=== PATIENT | male | born 1950 | race Caucasian/White ===

== ENCOUNTER 2017-09-26 11:53 | Inpatient (IN) | payer MEDICARE ==
[2017-09-26] MEDS ORDERED: SODIUM CHLORIDE 0.9% 1,000 ML IV STA ×2 (12:10)
[2017-09-26 12:27] LABS: Basophils % (A) 1 %; Eosinophils # (A) 0.2 k/uL (0-0.7); Eosinophils % (A) 4 %; HGB 9.8 gm/dL (13.0-17.5); Hypochromasia Marked; Lymphocytes # (A) 1.3 k/uL (1.0-4.8); Lymphocytes % (A) 21 %; MCH 23.3 pg (25.0-35.0); MCHC 29.7 g/dL (31.0-37.0); MCV 78.5 fL (80.0-100.0); Mean Platelet Volume 8.4; Monocytes # (A) 0.4 k/uL (0-1.0); Monocytes % (A) 6 %; Neutrophils # (A) 3.9 k/uL (1.3-7.7); Neutrophils % (A) 66 %; Platelet Count 180 k/uL (150-450); RBC 4.21 m/uL (4.30-5.90); RDW 15.7 % (11.5-15.5); WBC 5.8 k/uL (3.8-10.6)
[2017-09-26 12:37] LABS: Glucose 124 mg/dL (74-99); Potassium 3.8 mmol/L (3.5-5.1); Sodium 148 mmol/L (137-145)
[2017-09-26 12:38] LABS: ALT 52 U/L (21-72); AST 63 U/L (17-59); Albumin 3.6 g/dL (3.5-5.0); Alkaline Phosphatase 154 U/L (38-126); Anion Gap 16 mmol/L; Blood Urea Nitrogen 11 mg/dL (9-20); Calcium 8.4 mg/dL (8.4-10.2); Carbon Dioxide 19 mmol/L (22-30); Chloride 113 mmol/L (98-107); Magnesium 2.1 mg/dL (1.6-2.3); Phosphorus 2.2 mg/dL (2.5-4.5); Total Bilirubin 0.3 mg/dL (0.2-1.3); Total Protein 6.8 g/dL (6.3-8.2)
[2017-09-26 12:46] LABS: Partial Thromboplastin Time 21.9 sec (22.0-30.0); Prothrombin Time 10.2 sec (9.0-12.0)
[2017-09-26 12:50] LABS: Creatine Kinase 72 U/L (55-170)
[2017-09-26 13:02] LABS: Creatine Kinase MB 0.5 ng/mL (0.0-2.4); Troponin I <0.012 ng/mL (0.000-0.034)
--- NOTE | 2017-09-26 13:02 | CT ---
EXAMINATION TYPE: CT brain wo con DATE OF EXAM: 09/26/2017 COMPARISON: Prior CT brain 06/21/2014, MR brain 07/07/2014 HISTORY: Weakness, prior CVA CT DLP: 1183 mGycm Automated exposure control for dose reduction was used. Helical acquisition through the brain. FINDINGS: The area probable residual parenchyma in the posterior parietal region on the right shows an interval increase in attenuation to suspect is due to calcification. No focal mass effect. Large area of prio r cerebral vascular accident is stable involving the right cerebrum, there is associated ex vacuo phe nomenon of the right lateral ventricle. Right cerebral peduncle is diminished in size as compared to the left. Cortical atrophy is again noted. No suspected hydrocephalus. Cerebral vascular calcificatio ns are noted. Inflammatory change is mild within the maxillary sinuses. IMPRESSION: NO DEFINITE ACUTE ABNORMALITY DESCRIBED. FINDINGS IN THE RIGHT PARIETAL LOBE AND AREA OF PRIOR CER EBRAL INFARCT THOUGHT LIKELY TO BE CHRONIC. MRI MAY BE OF BENEFIT.
[2017-09-26 13:43] LABS: Appearance,Urine Clear (Clear); Bilirubin,Urine Negative (Negative); Blood,Urine Negative (Negative); Color,Urine Yellow; Glucose,Urine (UA) Negative (Negative); Hyaline Casts,Urine 9 /lpf (0-2); Ketones,Urine Trace (Negative); Leukocyte Esterase,Urine Negative (Negative); Mucus,Urine Occasional /hpf; Nitrite,Urine Negative (Negative); PH, Urine 5.5 (5.0-8.0); Protein,Urine 1+ (Negative); Specific Gravity,Urine 1.017 (1.001-1.035); Squamous Epithelial Cell,Urine <1 /hpf (0-4); WBC,Urine 4 /hpf (0-5)
[2017-09-26] MEDS ORDERED: ASPIRIN 325 MG TAB PO STA (13:53)
--- NOTE | 2017-09-26 13:58 | ED ---
General Adult HPI - General Chief complaint: Weakness Stated complaint: WEAKNESS Time Seen by Provider: 09/26/17 12:10 Source: patient, EMS, RN notes reviewed, old records reviewed Mode of arrival: EMS Limitations: no limitations - History of Present Illness Initial comments: This is a 67-year-old male the ER for evaluation. Patient is today for evaluation of sudden onset left lower extremity weakness. Patient does have prior history of CVA which did affect his left side. Patient states he woke today with inability to ambulate and no strength to LLE - Related Data Home Medications Medication Instructions Recorded Confirmed Aspirin 81 mg PO DAILY 11/07/13 09/26/17 Citalopram Hydrobromide [CeleXA] 20 mg PO DAILY 11/07/13 09/26/17 Hydrocodone/Acetaminophen 1 tab PO Q12H PRN 11/07/13 09/26/17 [Hydrocodone/Acetaminophen 7.5-325] Cyanocobalamin [Vitamin B-12] 1,000 mcg PO DAILY 11/06/14 09/26/17 amLODIPine [Norvasc] 10 mg PO DAILY 11/06/14 09/26/17 diphenhydrAMINE [Benadryl] 25 mg PO Q6H PRN 11/06/14 09/26/17 Acetaminophen Tab [Tylenol Tab] 650 mg PO Q6H PRN 09/26/17 09/26/17 Finasteride [Proscar] 5 mg PO DAILY 09/26/17 09/26/17 Fluticasone Nasal [place] [Flonase 2 spr EA NOSTRIL DAILY 09/26/17 09/26/17 Nasal [place]] Hydrochlorothiazide 12.5 mg PO DAILY 09/26/17 09/26/17 Losartan Potassium [Cozaar] 25 mg PO DAILY 09/26/17 09/26/17 Naproxen 500 mg PO BID 09/26/17 09/26/17 Triamcinolone 0.1% Cream [Kenalog] 1 applicatio TOPICAL BID PRN 09/26/17 Vitamin B Complex 1 cap PO DAILY 09/26/17 09/26/17 Allergies Allergy/AdvReac Type Severity Reaction Status Date / Time No Known Allergies Allergy Verified 09/26/17 12:29 Review of Systems ROS Statement: Those systems with pertinent positive or pertinent negative responses have been documented in the HPI. ROS Other: All systems not noted in ROS Statement are negative. Past Medical History Past Medical History: Atrial Fibrillation, CVA/TIA, Hyperlipidemia, Osteoarthritis (OA), Rheumatoid Arthritis (RA), Seizure Disorder Additional Past Medical History / Comment(s): see Dr Dowd H&P, CVA 2011-left sided weakness-uses a cane, hx migraines, last seizure 4 yrs ago History of Any Multi-Drug Resistant Organisms: None Reported Past Surgical History: Cholecystectomy, Tonsillectomy Past Anesthesia/Blood Transfusion Reactions: No Reported Reaction Past Psychological History: Depression Smoking Status: Former smoker Past Alcohol Use History: None Reported Past Drug Use History: None Reported - Past Family History Mother Family Medical History: No Reported History General Exam - General Exam Comments Initial Comments: Inability to move left lower extremity Limitations: no limitations General appearance: alert, in no apparent distress Head exam: Present: atraumatic, normocephalic, normal inspection Eye exam: Present: normal appearance, PERRL, EOMI. Absent: scleral icterus, conjunctival injection, periorbital swelling ENT exam: Present: normal exam, mucous membranes moist Neck exam: Present: normal inspection. Absent: tenderness, meningismus, lymphadenopathy Respiratory exam: Present: normal lung sounds bilaterally. Absent: respiratory distress, wheezes, rales, rhonchi, stridor Cardiovascular Exam: Present: regular rate, normal rhythm, normal heart sounds. Absent: systolic murmur, diastolic murmur, rubs, gallop, clicks GI/Abdominal exam: Present: soft, normal bowel sounds. Absent: distended, tenderness, guarding, rebound, rigid Extremities exam: Present: normal inspection, full ROM, normal capillary refill. Absent: tenderness, pedal edema, joint swelling, calf tenderness Back exam: Present: normal inspection Neurological exam: Present: alert, oriented X3, CN II-XII intact Psychiatric exam: Present: normal affect, normal mood Skin exam: Present: warm, dry, intact, normal color. Absent: rash Course Vital Signs 09/26/17 09/26/17 11:56 13:25 Temperature 98.9 F Pulse Rate 107 H 86 Respiratory 18 18 Rate Blood Pressure 147/60 125/58 O2 Sat by Pulse 98 93 L Oximetry - Reevaluation(s) Reevaluation #1: 09/26/17 13:57 Patient was significantly decreased movement of left lower extremity and weakness, inability to move left leg Medical Decision Making - Medical Decision Making 67 male the ER for evaluation. Patient states he woke up he was significant left lower extremity weakness and inability to ambulate secondary left leg weakness. Has history of old CVA which had left had affect his left leg but now is significantly worse off - Lab Data Result diagrams: 09/26/17 12:07 09/26/17 12:07 Lab Results 09/26/17 09/26/17 09/26/17 Range/Units 12:07 12:07 12:07 WBC 5.8 (3.8-10.6) k/uL RBC 4.21 L (4.30-5.90) m/uL Hgb 9.8 L (13.0-17.5) gm/dL Hct 33.0 L (39.0-53.0) % MCV 78.5 L (80.0-100.0) fL MCH 23.3 L (25.0-35.0) pg MCHC 29.7 L (31.0-37.0) g/dL RDW 15.7 H (11.5-15.5) % Plt Count 180 (150-450) k/uL Neutrophils % 66 % Lymphocytes % 21 % Monocytes % 6 % Eosinophils % 4 % Basophils % 1 % Neutrophils # 3.9 (1.3-7.7) k/uL Lymphocytes # 1.3 (1.0-4.8) k/uL Monocytes # 0.4 (0-1.0) k/uL Eosinophils # 0.2 (0-0.7) k/uL Basophils # 0.0 (0-0.2) k/uL Hypochromasia Marked PT (9.0-12.0) sec INR (<1.2) APTT (22.0-30.0) sec Sodium 148 H (137-145) mmol/L Potassium 3.8 (3.5-5.1) mmol/L Chloride 113 H (98-107) mmol/L Carbon Dioxide 19 L (22-30) mmol/L Anion Gap 16 mmol/L BUN 11 (9-20) mg/dL Creatinine 0.60 L (0.66-1.25) mg/dL Est GFR (CKD-EPI)AfAm >90 (>60 ml/min/1.73 sqM) Est GFR (CKD-EPI)NonAf >90 (>60 ml/min/1.73 sqM) Glucose 124 H (74-99) mg/dL Plasma Lactic Acid [place] (0.7-2.0) mmol/L Calcium 8.4 (8.4-10.2) mg/dL Phosphorus 2.2 L (2.5-4.5) mg/dL Magnesium 2.1 (1.6-2.3) mg/dL Total Bilirubin 0.3 (0.2-1.3) mg/dL AST 63 H (17-59) U/L ALT 52 (21-72) U/L Alkaline Phosphatase 154 H (38-126) U/L Total Creatine Kinase 72 (55-170) U/L CK-MB (CK-2) 0.5 (0.0-2.4) ng/mL CK-MB (CK-2) Rel Index 0.7 Troponin I <0.012 (0.000-0.034) ng/mL Total Protein 6.8 (6.3-8.2) g/dL Albumin 3.6 (3.5-5.0) g/dL Urine Color Urine Appearance (Clear) Urine pH (5.0-8.0) Ur Specific [place] (1.001-1.035) Urine Protein (Negative) Urine Glucose (UA) (Negative) Urine Ketones (Negative) Urine Blood (Negative) Urine Nitrite (Negative) Urine Bilirubin (Negative) Urine Urobilinogen (<2.0) mg/dL Ur Leukocyte Esterase (Negative) Urine WBC (0-5) /hpf Ur Squamous Epith Cells (0-4) /hpf Hyaline Casts (0-2) /lpf Urine Mucus (None) /hpf 09/26/17 09/26/17 09/26/17 Range/Units 12:07 12:19 13:25 WBC (3.8-10.6) k/uL RBC (4.30-5.90) m/uL Hgb (13.0-17.5) gm/dL Hct (39.0-53.0) % MCV (80.0-100.0) fL MCH (25.0-35.0) pg MCHC (31.0-37.0) g/dL RDW (11.5-15.5) % Plt Count (150-450) k/uL Neutrophils % % Lymphocytes % % Monocytes % % Eosinophils % % Basophils % % Neutrophils # (1.3-7.7) k/uL Lymphocytes # (1.0-4.8) k/uL Monocytes # (0-1.0) k/uL Eosinophils # (0-0.7) k/uL Basophils # (0-0.2) k/uL Hypochromasia PT 10.2 (9.0-12.0) sec INR 1.0 (<1.2) APTT 21.9 L (22.0-30.0) sec Sodium (137-145) mmol/L Potassium (3.5-5.1) mmol/L Chloride (98-107) mmol/L Carbon Dioxide (22-30) mmol/L Anion Gap mmol/L BUN (9-20) mg/dL Creatinine (0.66-1.25) mg/dL Est GFR (CKD-EPI)AfAm (>60 ml/min/1.73 sqM) Est GFR (CKD-EPI)NonAf (>60 ml/min/1.73 sqM) Glucose (74-99) mg/dL Plasma Lactic Acid [place] 2.5 H* (0.7-2.0) mmol/L Calcium (8.4-10.2) mg/dL Phosphorus (2.5-4.5) mg/dL Magnesium (1.6-2.3) mg/dL Total Bilirubin (0.2-1.3) mg/dL AST (17-59) U/L ALT (21-72) U/L Alkaline Phosphatase (38-126) U/L Total Creatine Kinase (55-170) U/L CK-MB (CK-2) (0.0-2.4) ng/mL CK-MB (CK-2) Rel Index Troponin I (0.000-0.034) ng/mL Total Protein (6.3-8.2) g/dL Albumin (3.5-5.0) g/dL Urine Color Yellow Urine Appearance Clear (Clear) Urine pH 5.5 (5.0-8.0) Ur Specific [place] 1.017 (1.001-1.035) Urine Protein 1+ H (Negative) Urine Glucose (UA) Negative (Negative) Urine Ketones Trace H (Negative) Urine Blood Negative (Negative) Urine Nitrite Negative (Negative) Urine Bilirubin Negative (Negative) Urine Urobilinogen 2.0 (<2.0) mg/dL Ur Leukocyte Esterase Negative (Negative) Urine WBC 4 (0-5) /hpf Ur Squamous Epith Cells <1 (0-4) /hpf Hyaline Casts 9 H (0-2) /lpf Urine Mucus Occasional H (None) /hpf - Radiology Data Radiology results: report reviewed (CT brain redemonstrates right parietal infarct,), image reviewed Disposition Clinical Impression: Head injury, Left leg weakness, CVA (cerebral vascular accident) Disposition: ADMITTED IP TO THIS HOSP Referrals: Nicolle Taylor III, MD [Primary Care Provider] - 1-2 days
[2017-09-26] MEDS ORDERED: ACETAMINOPHEN TAB 325 MG TAB PO PRN (16:37)
[2017-09-26] MEDS ORDERED: TRIAMCINOLONE 0.1% CREAM 80 GM TUBE TOPICAL PRN (16:37)
[2017-09-26] MEDS ORDERED: HYDROcodone/APAP 7.5-325MG 1 EACH TAB PO PRN (16:37)
[2017-09-26] MEDS ORDERED: diphenhydrAMINE 25 MG CAP PO PRN (16:37)
--- NOTE | 2017-09-26 17:01 | P.HPIM ---
History of Present Illness Patient is a pleasant 67-year-old gentleman came in with complaints of left lower extremity weakness restarted today morning patient does have history of CVA in the past on the left side. Patient does have history of atrial fibrillation does not appear to be on any anticoagulation although patient patient doesn't clearly know what medications he takes at home and he believes he takes a blood thinner. Patient was evaluated in the past with the Holter monitor which showed an episode of paroxysmal atrial fibrillation. Patient appears to be using aspirin at home. I did review his previous medical records here in the hospital extensively. Patient had a stroke unsure whether it's the ischemic or hemorrhagic in nature the CAT scan here did not show any present hemorrhage did show ischemic changes in the right parietal lobe. I did review his previous MRI which don't show this he ischemia along with some possible subacute to chronic hemorrhage in that area at that time. Unsure why patient is not on anticoagulation for atrial fibrillation. Patient is unable to provide me clear history. We will obtain medical records from [place] where he had this stroke patient has residual weakness in the left upper arm strength of which is almost 0-1/5. Patient can use me history of increased weakness in the left leg unable to stand up on the left leg because of the weakness and his strength in the left leg is 4+/5 strength of which as per the patient is improving denied any tingling numbness. Denied any facial droop denied any speech abnormalities. Carotid Doppler in 2014 did not show any significant abnormality echocardiogram was essentially within normal limits repeat echo and carotid Doppler will be obtained lipid panel will be obtained, neurology was consulted, PT and OT will be consulted and we will also consult cardiology regarding his history of atrial fibrillation presently I do not have any EKG available which will be ordered. Patient additionally found to have elevated lactic acid of 2.5 patient denied any fever chills although does have cough denied any dysuria urease did not show any significant abnormality patient is probably dehydrated for which patient is getting IV fluids will repeat lactic acid will also obtain a chest x- ray to rule out any pneumonia. Review of Systems REVIEW OF SYSTEMS: CONSTITUTIONAL: No fever, no malaise, no fatigue. HEENT: No recent visual problems or hearing problems. Denied any sore throat. CARDIOVASCULAR: No chest pain, orthopnea, PND, no palpitations, no syncope. PULMONARY: No shortness of breath, no cough, no hemoptysis. GASTROINTESTINAL: No diarrhea, no nausea, no vomiting, no abdominal pain. Normoactive bowel sounds. NEUROLOGICAL: No headaches, no numbness. HEMATOLOGICAL: Denies any bleeding or petechiae. GENITOURINARY: Denies any burning micturition, frequency, or urgency. MUSCULOSKELETAL/RHEUMATOLOGICAL: Denies any joint pain, swelling, or any muscle pain. ENDOCRINE: Denies any polyuria or polydipsia. The rest of the 14-point review of systems is negative. Past Medical History Past Medical History: Atrial Fibrillation, CVA/TIA, Hyperlipidemia, Hypertension , Osteoarthritis (OA), Pneumonia, Seizure Disorder Additional Past Medical History / Comment(s): Pt states he had a CVA in 2010 and has L sided weakness and decreased vision in L eye, pt states he had a seizure after his 2010 CVA, arthritis L hip and L shoulder, thinks he may have RA but never diagnosed, migraines, anemia, colon polyp-benign, past L lower leg cellulitis. History of Any Multi-Drug Resistant Organisms: None Reported Past Surgical History: Cholecystectomy, Tonsillectomy Additional Past Surgical History / Comment(s): 11/06/14 loop recorder, colonoscopies, benign polypectomy. Past Anesthesia/Blood Transfusion Reactions: No Reported Reaction Past Psychological History: Depression Additional Psychological History / Comment(s): Pt resides alone in a senior apartment. He uses a walker to ambulate. He does not drive, his daughter takes him to appts. His daughter, Yas also manages his medications. He gets meals thru the senior apartments. Pt states medication for his depression works good for him. Smoking Status: Former smoker Past Alcohol Use History: None Reported Additional Past Alcohol Use History / Comment(s): Pt started smoking in 1966 and quit in 2009. He states he also was a heavy drinker but quit that as well in 2009. Past Drug Use History: None Reported - Past Family History Father Family Medical History: No Reported History Additional Family Medical History / Comment(s): Father was healthy. He in a MVA at the age of 69yrs. Mother Family Medical History: Diabetes Mellitus, Myocardial Infarction ([place]) Additional Family Medical History / Comment(s): Mother also had a pneumothorax. Medications and Allergies Home Medications Medication Instructions Recorded Confirmed Type Aspirin 81 mg PO DAILY 11/07/13 09/26/17 History Citalopram Hydrobromide [CeleXA] 20 mg PO DAILY 11/07/13 09/26/17 History Hydrocodone/Acetaminophen 1 tab PO Q12H PRN 11/07/13 09/26/17 History [Hydrocodone/Acetaminophen 7.5-325] Cyanocobalamin [Vitamin B-12] 1,000 mcg PO DAILY 11/06/14 09/26/17 History amLODIPine [Norvasc] 10 mg PO DAILY 11/06/14 09/26/17 History diphenhydrAMINE [Benadryl] 25 mg PO Q6H PRN 11/06/14 09/26/17 History Acetaminophen Tab [Tylenol Tab] 650 mg PO Q6H PRN 09/26/17 09/26/17 History Finasteride [Proscar] 5 mg PO DAILY 09/26/17 09/26/17 History Fluticasone Nasal [place] [Flonase 2 spr EA NOSTRIL DAILY 09/26/17 09/26/17 History Nasal [place]] Hydrochlorothiazide 12.5 mg PO DAILY 09/26/17 09/26/17 History Losartan Potassium [Cozaar] 25 mg PO DAILY 09/26/17 09/26/17 History Naproxen 500 mg PO BID 09/26/17 09/26/17 History Triamcinolone 0.1% Cream [Kenalog] 1 applicatio TOPICAL BID PRN 09/26/17 History Vitamin B Complex 1 cap PO DAILY 09/26/17 09/26/17 History Allergies Allergy/AdvReac Type Severity Reaction Status Date / Time No Known Allergies Allergy Verified 09/26/17 12:29 Physical Exam Vitals: Vital Signs Temp Pulse Pulse Resp BP BP Pulse Ox 09/26/17 16:09 97.7 F 71 17 130/59 97 09/26/17 15:27 73 17 127/60 09/26/17 14:24 17 150/65 97 09/26/17 13:25 86 18 125/58 93 L 09/26/17 11:56 98.9 F 107 H 18 147/60 98 Intake and Output 09/26/17 09/26/17 09/26/17 06:59 14:59 22:59 Other: Weight 95.254 kg PHYSICAL EXAMINATION: GENERAL: The patient is alert and oriented x3, not in any acute distress. Well developed, well nourished. HEENT: Pupils are round and equally reacting to light. EOMI. No scleral icterus. No conjunctival pallor. Normocephalic, atraumatic. No pharyngeal erythema. No thyromegaly. CARDIOVASCULAR: S1 and S2 present. No murmurs, rubs, or gallops. PULMONARY: Chest is clear to auscultation, no wheezing or crackles. ABDOMEN: Soft, nontender, nondistended, normoactive bowel sounds. No palpable organomegaly. MUSCULOSKELETAL: No joint swelling or deformity. EXTREMITIES: No cyanosis, clubbing, or pedal edema. NEUROLOGICAL: Gross neurological examination showed sinus 0-1/5 strength in the left upper extremity and 4+/5 strength in the left lower extremity and no other focal deficits were appreciated SKIN: No rashes. Results CBC & Chem 7: 09/26/17 12:07 09/26/17 12:07 Labs: Abnormal Lab Results - Last 24 Hours (Table) 09/26/17 09/26/17 09/26/17 Range/Units 12:07 12:07 12:07 RBC 4.21 L (4.30-5.90) m/uL Hgb 9.8 L (13.0-17.5) gm/dL Hct 33.0 L (39.0-53.0) % MCV 78.5 L (80.0-100.0) fL MCH 23.3 L (25.0-35.0) pg MCHC 29.7 L (31.0-37.0) g/dL RDW 15.7 H (11.5-15.5) % APTT 21.9 L (22.0-30.0) sec Sodium 148 H (137-145) mmol/L Chloride 113 H (98-107) mmol/L Carbon Dioxide 19 L (22-30) mmol/L Creatinine 0.60 L (0.66-1.25) mg/dL Glucose 124 H (74-99) mg/dL Plasma Lactic Acid [place] (0.7-2.0) mmol/L Phosphorus 2.2 L (2.5-4.5) mg/dL AST 63 H (17-59) U/L Alkaline Phosphatase 154 H (38-126) U/L Urine Protein (Negative) Urine Ketones (Negative) Hyaline Casts (0-2) /lpf Urine Mucus (None) /hpf 09/26/17 09/26/17 Range/Units 12:19 13:25 RBC (4.30-5.90) m/uL Hgb (13.0-17.5) gm/dL Hct (39.0-53.0) % MCV (80.0-100.0) fL MCH (25.0-35.0) pg MCHC (31.0-37.0) g/dL RDW (11.5-15.5) % APTT (22.0-30.0) sec Sodium (137-145) mmol/L Chloride (98-107) mmol/L Carbon Dioxide (22-30) mmol/L Creatinine (0.66-1.25) mg/dL Glucose (74-99) mg/dL Plasma Lactic Acid [place] 2.5 H* (0.7-2.0) mmol/L Phosphorus (2.5-4.5) mg/dL AST (17-59) U/L Alkaline Phosphatase (38-126) U/L Urine Protein 1+ H (Negative) Urine Ketones Trace H (Negative) Hyaline Casts 9 H (0-2) /lpf Urine Mucus Occasional H (None) /hpf Thrombosis Risk Factor Assmnt - Choose All That Apply Any of the Below Risk Factors Present?: Yes Each Factor Represents 1 point: Obesity (BMI >25) Other Risk Factors: Yes Each Risk Factor Represents 2 Points: Age 61-74 years Other congenital or acquired thrombophilia - If yes, enter type in comment: No Each Risk Factor Represents 5 Points: Stroke (< 1 month) Thrombosis Risk Factor Assessment Total Risk Factor Score: 8 Thrombosis Risk Factor Assessment Level: High Risk Assessment and Plan Plan: -Possible stroke, patient does have previous history of stroke in the right parietal lobe. Stroke workup as mentioned above patient may need an MRI addition of which will neurology. -Questionable history of atrial fibrillation and consult cardiology patient will not be started on any anti-correlation at this time considering that he may have had a hemorrhagic stroke in the past -Lactic acidosis: Secondary to intravascular depletion no signs or symptoms of infection at this time repeat lactic acid continue IV fluids part of the metabolic acidosis is secondary to hyperchloremia -CVA TIA in the past -Hyperlipidemia -Hypertension -Seizure disorder in the past
--- NOTE | 2017-09-26 19:08 | XR ---
EXAMINATION TYPE: XR chest 2V DATE OF EXAM: 09/26/2017 COMPARISON: Chest x-ray June 21, 2014. HISTORY: Weakness rule out pneumonia. TECHNIQUE: Frontal and lateral views of the chest are obtained. FINDINGS: There is no focal air space opacity, pleural effusion, or pneumothorax seen. The cardiac silhouette size is mildly enlarged. The osseous structures are intact. IMPRESSION: Mild cardiomegaly without suspicious acute pulmonary process.
--- NOTE | 2017-09-26 19:35 | US ---
EXAMINATION TYPE: US carotid duplex BILAT DATE OF EXAM: 09/26/2017 COMPARISON: US carotid August 12 2014 CLINICAL HISTORY: CVA. CVA EXAM MEASUREMENTS: RIGHT: Peak Systolic Velocity (PSV) cm/sec ----- Right CCA: 123.3 ----- Right ICA: 83.3 ----- Right ECA: 158.6 ICA/CCA ratio: 0.7 RIGHT: End Diastole cm/sec ----- Right CCA: 16.9 ----- Right ICA: 17.3 ----- Right ECA: 11.1 LEFT: Peak Systolic Velocity (PSV) cm/sec ----- Left CCA: 135.0 ----- Left ICA: 132.9 ----- Left ECA: 121.0 ICA/CCA ratio: 1.0 LEFT: End Diastole cm/sec ----- Left CCA: 13.9 ----- Left ICA: 23.1 ----- Left ECA: 6.8 VERTEBRALS (direction of flow): Right Vertebral: Antegrade Left Vertebral: Antegrade Rhythm: Normal Grayscale images redemonstrate moderate plaque right carotid bulb. Velocity measurements and right in ternal carotid artery remain within normal limits. There is moderate to severe eccentric plaque at le ft carotid bulb now identified. Increased systolic velocity left common carotid artery is seen. No si gnificant elevated velocity is noted. IMPRESSION: Persistent atherosclerotic change bilaterally without hemodynamically significant stenos is clearly seen in either internal carotid artery.
[2017-09-26] MEDS: NAPROXEN 250 MG TAB PO SCH (21:04)
[2017-09-26] MEDS: SODIUM CHLORIDE 0.9% 1,000 ML IV SCH (21:06)
--- NOTE | 2017-09-26 21:31 | CONS ---
CONSULTATION DATE OF CONSULTATION: 09/26/2017. CHIEF COMPLAINT: Transient ischemic attack. HISTORY OF PRESENT ILLNESS: The patient is a pleasant 67-year-old male who is being evaluated by the neurology service per the request of Dr. Carpio for a transient ischemic attack. The patient was brought into [facility] Emergency Room after he fell trying to get into bed. The [facility] after he had a large stroke a few years ago and he has residual left hemiparesis. From the stroke, he has no movement in his left upper extremity and moderate weakness in his left lower extremity. He is able to ambulate using a special walker. He states that he was trying to get in bed today and fell to the ground. When they tried to assist him up, he noticed that his left leg is weaker than usual. The patient is on aspirin daily at home. According to the chart, the patient has a history of paroxysmal atrial fibrillation. It is unclear why he is not on anticoagulation therapy. He does treat with Dr. Dowd. At the time of my evaluation, the patient's left lower extremity strength has returned to his baseline. He denies any other neurological complaints. A CT scan of the brain was done, which showed an old large right middle cerebral artery ischemic stroke with residual ventriculomegaly on that side. There was some hyperattenuation in the right parietal region consistent with calcification. His CBC showed anemia with hemoglobin of 9.8 and hematocrit of 33%. His comprehensive metabolic profile showed hypernatremia at 148 and slightly elevated AST at 63. His cardiac enzymes and urinalysis were normal. PAST MEDICAL HISTORY: Stroke with residual left hemiparesis, paroxysmal atrial fibrillation, according to the chart; dyslipidemia, hypertension, arthritis, seizure disorder, migraines, history of tonsillectomy and cholecystectomy. He also has history of depression. SOCIAL HISTORY: The patient is a former smoker. There is history of alcohol abuse, but he quit drinking in 2009. He denies any drug use. FAMILY HISTORY: Positive for heart disease and diabetes. HOME MEDICATIONS: Reviewed in the chart. ALLERGIES: No known drug allergies. REVIEW OF SYSTEMS: CONSTITUTIONAL: Negative. EYES: Negative. ENT: Negative. CARDIOVASCULAR: As mentioned above. RESPIRATORY: Negative. NEUROLOGICAL: As mentioned above. GASTROINTESTINAL: Positive for occasional heartburn. GENITOURINARY: Negative. PSYCHIATRIC: Positive for history of depression. MUSCULOSKELETAL: Positive for occasional joint pain. ENDOCRINE: Negative. DERMATOLOGICAL: Negative. PHYSICAL EXAM: Vital signs show a temperature of 97.7, pulse 71, respirations 17, blood pressure 130/59. GENERAL APPEARANCE: The patient is a well-developed male, who appears to be in no acute distress. HEENT: Normocephalic, atraumatic, no facial asymmetry is seen. Extraocular muscles are intact. NECK: Supple with no masses felt. CARDIOVASCULAR: Regular rate and rhythm. ABDOMEN: Nontender nondistended. Extremities showed no edema or clubbing. NEUROLOGICAL: The patient is awake and oriented x3. Speech and language are normal. Strength is 5/5 on the right upper and lower extremity, 3/5 on the left lower extremity, and 0/5 on the left upper extremity. Significant spasticity is present in the left upper extremity. Sensory exam was normal to light touch in all 4 extremities. No facial asymmetry is seen on cranial nerve testing. No tremors or seizure-like activity is seen. IMPRESSION: 1. Transient ischemic attack. 2. Worsening left lower extremity weakness, resolved. 3. History of previous ischemic stroke with residual left hemiparesis. 4. Paroxysmal atrial fibrillation. 5. Left upper extremity spasticity. RECOMMENDATION: The patient may have suffered a transient ischemic attack with a transient episode of worsening left lower extremity weakness which caused his fall. At this time, he is back to baseline, as mentioned above. He is currently on aspirin, but according to the chart, the patient has paroxysmal atrial fibrillation. I will consult Dr. Dowd for further recommendation. From a neurology standpoint, the patient should be on anticoagulation therapy. I will order a fasting lipid panel, serum homocystine level and EEG. Physical Therapy will be consulted. As for his spasticity, the patient will benefit from Botox injections. The patient has seen Dr. Miller in the past and he should follow up with him for further management. Continue neuro checks. I will continue to follow with you. Further recommendations to follow. Thank you for allowing me to participate in the care of your patient. If you have any questions, please feel free to contact me. CATERINA / DANILO: [phone] /
[2017-09-27] MEDS: SODIUM CHLORIDE 0.9% 1,000 ML IV SCH ×2 (00:27→13:28)
[2017-09-27 06:33] LABS: Cholesterol 81 mg/dL (<200); HDL Cholesterol 32 mg/dL (40-60); LDL Cholesterol,Calculated 35 mg/dL (0-99); Triglycerides 69 mg/dL (<150)
--- NOTE | 2017-09-27 06:42 | ECHOF ---
Referral Reason:CVA MEASUREMENTS -------- HEIGHT: 182.9 cm WEIGHT: 95.3 kg BP: 130/59 RVIDd: 3.2 cm (< 3.3) IVSd: 1.2 cm (0.6 - 1.1) LVIDd: 4.7 cm (3.9 - 5.3) LVPWd: 1.3 cm (0.6 - 1.1) IVSs: 1.6 cm LVIDs: 3.0 cm LVPWs: 1.6 cm Ao Diam: 3.4 cm (2.0 - 3.7) LAESV Index (A-L): 29.55 ml/m Ao Diam: 3.4 cm (2.0 - 3.7) AV Cusp: 2.3 cm (1.5 - 2.6) LA Diam: 3.5 cm (2.7 - 3.8) EPSS: 0.7 cm MV E Roel: 1.00 m/s MV DecT: 290 ms MV A Roel: 1.14 m/s MV E/A Ratio: 0.88 RAP: 5.00 mmHg RVSP: 9.82 mmHg MV EF SLOPE: 123.09 mm/s (70 - 150) MV EXCURSION: 1.53 cm (> 18.000) FINDINGS -------- Sinus rhythm. This was a technically difficult study with suboptimal views. The left ventricular size is normal. There is mild concentric left ventricular hypertrophy. Overa ll left ventricular systolic function is normal with, an EF between 55 - 60 %. The right ventricle is normal in size. LA is midly dilated 29-33ml/m2. The right atrium is normal in size. 3ml of Lumason was utilized for enhancement of images. Aortic valve is trileaflet and is mildly thickened. The mitral valve leaflets are mildly thickened. Mild mitral regurgitation is present. Mild tricuspid regurgitation present. Right ventricular systolic pressure is normal at < 35 mmHg. There is no evidence of pulmonary hypertension. The pulmonic valve was not well visualized. There is no pulmonic regurgitation present. The aortic root size is normal. IVC Not well visulized. There is no pericardial effusion. CONCLUSIONS -------- 1. Sinus rhythm. 2. This was a technically difficult study with suboptimal views. 3. The left ventricular size is normal. 4. There is mild concentric left ventricular hypertrophy. 5. Overall left ventricular systolic function is normal with, an EF between 55 - 60 %. 6. LA is midly dilated 29-33ml/m2. 7. 3ml of Lumason was utilized for enhancement of images. 8. Aortic valve is trileaflet and is mildly thickened. 9. The mitral valve leaflets are mildly thickened. 10. Mild mitral regurgitation is present. 11. Mild tricuspid regurgitation present. 12. Right ventricular systolic pressure is normal at < 35 mmHg. 13. The pulmonic valve was not well visualized. 14. There is no pulmonic regurgitation present. 15. The aortic root size is normal. 16. IVC Not well visulized. 17. There is no pericardial effusion. SUPERINTENDENT COMMUNICATIONS: Miah Garcia RDCS
[2017-09-27] MEDS: CITALOPRAM HYDROBROMIDE 20 MG TAB PO SCH (08:56)
[2017-09-27] MEDS: amLODIPine 10 MG TAB PO SCH (08:56)
[2017-09-27] MEDS: LOSARTAN 25 MG TAB PO SCH (08:57)
[2017-09-27] MEDS: FINASTERIDE 5 MG TAB PO SCH (08:57)
[2017-09-27] MEDS: NAPROXEN 250 MG TAB PO SCH ×2 (08:57→22:01)
[2017-09-27] MEDS: FLUTICASONE 50MCG/SPRAY NASAL 16GM EA NOSTRIL SCH (09:00)
--- NOTE | 2017-09-27 14:02 | EEG ---
ELECTROENCEPHALOGRAM REPORT DATE OF SERVICE: 09/27/2017 REASON FOR TESTING: Transient ischemic attack. DESCRIPTION OF THE PROCEDURE: This EEG was performed using a 21 channel digital electroencephalograph, following international 10-20 system. DESCRIPTION OF THE RECORDING: From the beginning of the tracing, and with patient's eyes closed, the background rhythm was mostly consisting of 10 Hz alpha frequency in the posterior occipital leads. Asymmetry is noticed with more significant muscle artifacts seen on the left compared to the right. Hyperventilation was not performed. Photic stimulation was performed with a minimal driving response seen. No pathological waves were elicited. More symmetrical muscle artifacts are seen later in the tracing. No epileptiform discharges were seen. The patient remains awake throughout the tracing. His EKG lead showed a regular rate and rhythm. INTERPRETATION: This awake EEG can be considered within normal limits, except for some asymmetry noticed likely due to his old stroke. No obvious epileptiform discharges were seen. The absence of epileptiform discharges does not rule out the diagnosis of epilepsy, therefore clinical correlation is recommended. MMALISON / IJN: [id number] /
--- NOTE | 2017-09-27 14:30 | P.PN ---
Subjective 67-year-old gentleman came in with complaints of weakness in the left leg which resolved. Patient appears to have had cancer and ischemic attack does have residual weakness from his previous stroke on the left side with significant increase in the left arm. Patient is requesting to go to subacute rehabilitation. Cardiology was consulted regarding anticoagulation and the neurology is recommending anticoagulation although I'm unsure whether patient had intracranial hemorrhage in the past. Tried to get history from the family who believes patient had intracranial hemorrhage nature of which is unknown unsure whether that is traumatic. We'll try to get medical records from the hospital where he was admitted in [place] without any success so far will try again and also reach [facility]. Patient appears to have had paroxysmal episodes of atrial fibrillation because of which she was not started on anticoagulation by cardiology cardiology here was consulted discussed with cardiology nurse practitioner today. Constitutional: Denied any fatigue denied any fever. Cardio vascular: denied any chest pain, palpitations Gastrointestinal denied any nausea vomiting Pulmonary: Denied any shortness of breath cough Neurologic denied any new focal deficits Objective - Vital Signs Vital signs: Vital Signs Temp 98.6 F 09/27/17 12:00 Pulse 83 09/27/17 12:00 Resp 18 09/27/17 12:00 BP 130/63 09/27/17 12:00 Pulse Ox 94 L 09/27/17 12:00 Intake & Output 09/26/17 09/27/17 09/27/17 18:59 06:59 18:59 Intake Total 480 800 240 Output Total 200 950 600 Balance 280 -150 -360 Weight 95.254 kg 122.5 kg Intake: Intake, IV Titration 800 Amount Sodium Chloride 0.9% 1, 800 000 ml @ 100 mls/hr IV . Q10H [facility] Rx#:[id number] Oral 480 240 Output: Urine 200 950 600 Other: Voiding Method Urinal Urinal Urinal - Exam PHYSICAL EXAMINATION: GENERAL: The patient is alert and oriented x3, not in any acute distress. Well developed, well nourished. HEENT: Pupils are round and equally reacting to light. EOMI. No scleral icterus. No conjunctival pallor. Normocephalic, atraumatic. No pharyngeal erythema. No thyromegaly. CARDIOVASCULAR: S1 and S2 present. No murmurs, rubs, or gallops. PULMONARY: Chest is clear to auscultation, no wheezing or crackles. ABDOMEN: Soft, nontender, nondistended, normoactive bowel sounds. No palpable organomegaly. MUSCULOSKELETAL: No joint swelling or deformity. EXTREMITIES: No cyanosis, clubbing, or pedal edema. NEUROLOGICAL: Gross neurological examination showed sinus 0-1/5 strength in the left upper extremity and 4+/5 strength in the left lower extremity and no other focal deficits were appreciated SKIN: No rashes. - Labs CBC & Chem 7: 09/26/17 12:07 09/26/17 12:07 Labs: Abnormal Lab Results - Last 24 Hours (Table) 09/27/17 Range/Units 05:56 HDL Cholesterol 32 L (40-60) mg/dL Assessment and Plan Plan: -Possible stroke, patient does have previous history of stroke in the right parietal lobe. Patient was evaluated by neurology and EEG did not show any significant abnormality further management as mentioned in the interval history anticoagulation discussion as per cardiology and neurology -Questionable history of atrial fibrillation and consulted cardiology.patient appears to have had paroxysmal episodes of atrial fibrillation -Lactic acidosis: Secondary to intravascular depletion no signs or symptoms of infection at this time repeat lactic acid , lactic acidosis completely resolved -CVA TIA in the past -Hyperlipidemia -Hypertension -Seizure disorder in the past
--- NOTE | 2017-09-27 15:25 | P.PN ---
Subjective Progress Note Date: 09/27/17 Patient is a pleasant 67-year-old male who is being followed by the neurology service for TIA. Patient does have history of CVA with left-sided weakness. Patient states left-sided weakness has been progressively getting worse leading to a fall at home. Patient was brought to [facility] for further evaluation. Patient does reside in [place] [facility] since having a large stroke a few years back. Patient uses a walker for ambulation at home. Patient's left upper extremity has no movement. Patient is on aspirin 81 mg daily at home. Patient has history of paroxysmal atrial fibrillation and cardiology's been consulted. No other new neurological findings have been reported. Computed tomography scan of the brain did show old large right middle cerebral artery ischemic stroke with residual ventriculomegaly on that side. Patient states he ambulated with physical therapy this morning using his walker. Patient still feels very unsteady. At the time of my evaluation, patient's resting comfortably in bed and appears to be in no acute distress. Objective - Vital Signs Vital signs: Vital Signs Temp 98.6 F 09/27/17 12:00 Pulse 83 09/27/17 12:00 Resp 18 09/27/17 12:00 BP 130/63 09/27/17 12:00 Pulse Ox 94 L 09/27/17 12:00 Intake & Output 09/26/17 09/27/17 09/27/17 18:59 06:59 18:59 Intake Total 480 800 240 Output Total 200 950 600 Balance 280 -150 -360 Weight 95.254 kg 122.5 kg Intake: Intake, IV Titration 800 Amount Sodium Chloride 0.9% 1, 800 000 ml @ 100 mls/hr IV . Q10H [facility] Rx#:[id number] Oral 480 240 Output: Urine 200 950 600 Other: Voiding Method Urinal Urinal Urinal - Exam PHYSICAL EXAM: GENERAL APPEARANCE: Patient is a well-developed, male who appears to be in no acute distress. HEENT: Normocephalic, atraumatic, no facial asymmetry is seen. Neck is supple with no masses felt. CARDIOVASCULAR: Regular rate and rhythm. Paroxysmal atrial fibrillation ABDOMEN: Nontender, nondistended. EXTREMITIES: Show mild edema. No clubbing. NEUROLOGICAL EXAM: Patient is awake, alert, and oriented 3. Speech and language are normal. Strength is 5/5 on the right upper and lower extremity. Strength is 4/5 on the left lower extremity and 0/5 in the left upper extremity. Sensory exam is normal to light touch in all 4 extremities. No facial asymmetry is seen on cranial nerve testing. No tremors or seizure-like activity noted. - Labs CBC & Chem 7: 09/26/17 12:07 09/26/17 12:07 Labs: Abnormal Lab Results - Last 24 Hours (Table) 09/27/17 Range/Units 05:56 HDL Cholesterol 32 L (40-60) mg/dL Assessment and Plan Plan: Impression: 1. Transient ischemic attack 2. Increase left lower extremity weakness, resolved 3. History of previous ischemic stroke with residual left hemiparesis. 4. Paroxysmal atrial fibrillation 5. Left upper extremity spasticity Recommendation: It does appear patient may have suffered a transient ischemic attack with transient episode of increased left lower extremity weakness which may have led to his fall. Patient is back to baseline at this time. Continue aspirin 325 mg by mouth daily. Patient has left upper extremity spasticity and may benefit from Botox injections as an outpatient. I will order an MRI of the brain. Due to history of paroxysmal atrial fibrillation, cardiology's been consulted. Await cardiology recommendation regarding anticoagulation. From a neurology standpoint, patient is recommended to be on anticoagulation therapy. Lipid panel was normal except for low HDL of 32. EEG was done and was normal except for some asymmetry noticed which is likely due to his old stroke. No epileptiform discharges were noted. Carotid Doppler did not show any hemodynamically significant stenosis. Homocystine level is pending. Continue physical therapy. Continue neurological checks. I will continue to follow with you. Further recommendations to follow. I performed an examination of the patient and discussed the management with the GRADER TENDER. I have reviewed the GRADER TENDER notes and agree with the findings and plan of care.
[2017-09-27] MEDS ORDERED: ASPIRIN 325 MG TAB PO STA (15:34)
--- NOTE | 2017-09-27 16:47 | P.CRDCN ---
History of Present Illness Consult date: 09/27/17 History of present illness: This is a 67-year-old gentleman with history of previous CVA with left-sided weakness, who was admitted to the hospital with complaints of increasing weakness on the same side involving the leg. Patient is evaluated by neurologist and felt that patient had a TIA. Patient has history of previous atrial fibrillation which was brief. He was seen by Dr. Dowd for evaluation of for atrial fibrillation and need for long-term anticoagulation. On the previous occasion when he had his stroke. Apparently the stroke converted to hematologic stroke. elected to do a loop recorder to see the patient has recurrence of atrial fibrillation. Apparently so far no episodes were documented. However the device is not recently interrogated. We'll interrogate the device again to see if he has any episodes of atrial fibrillation. If you do document the patient has recurrence of atrial fibrillation, long-term anti-cognition and be definitely recommended. Meanwhile patient will continue current medical therapy. He is going to have MRI to see if he had a recent recurrence of stroke Review of Systems As per HPI Past Medical History Past Medical History: Atrial Fibrillation, CVA/TIA, Hyperlipidemia, Hypertension , Osteoarthritis (OA), Pneumonia, Seizure Disorder Additional Past Medical History / Comment(s): Pt states he had a CVA in 2010 and has L sided weakness and decreased vision in L eye, pt states he had a seizure after his 2010 CVA, arthritis L hip and L shoulder, thinks he may have RA but never diagnosed, migraines, anemia, colon polyp-benign, past L lower leg cellulitis. History of Any Multi-Drug Resistant Organisms: None Reported Past Surgical History: Cholecystectomy, Tonsillectomy Additional Past Surgical History / Comment(s): 11/06/14 loop recorder, colonoscopies, benign polypectomy. Past Anesthesia/Blood Transfusion Reactions: No Reported Reaction Past Psychological History: Depression Additional Psychological History / Comment(s): Pt resides alone in a senior apartment. He uses a walker to ambulate. He does not drive, his daughter takes him to appts. His daughter, Yas also manages his medications. He gets meals thru the senior apartments. Pt states medication for his depression works good for him. Smoking Status: Former smoker Past Alcohol Use History: None Reported Additional Past Alcohol Use History / Comment(s): Pt started smoking in 1966 and quit in 2009. He states he also was a heavy drinker but quit that as well in 2009. Past Drug Use History: None Reported - Past Family History Father Family Medical History: No Reported History Additional Family Medical History / Comment(s): Father was healthy. He in a MVA at the age of 69yrs. Mother Family Medical History: Diabetes Mellitus, Myocardial Infarction ([place]) Additional Family Medical History / Comment(s): Mother also had a pneumothorax. Medications and Allergies Home Medications Medication Instructions Recorded Confirmed Type Aspirin 81 mg PO DAILY 11/07/13 09/26/17 History Citalopram Hydrobromide [CeleXA] 20 mg PO DAILY 11/07/13 09/26/17 History Hydrocodone/Acetaminophen 1 tab PO Q12H PRN 11/07/13 09/26/17 History [Hydrocodone/Acetaminophen 7.5-325] Cyanocobalamin [Vitamin B-12] 1,000 mcg PO DAILY 11/06/14 09/26/17 History amLODIPine [Norvasc] 10 mg PO DAILY 11/06/14 09/26/17 History diphenhydrAMINE [Benadryl] 25 mg PO Q6H PRN 11/06/14 09/26/17 History Acetaminophen Tab [Tylenol Tab] 650 mg PO Q6H PRN 09/26/17 09/26/17 History Finasteride [Proscar] 5 mg PO DAILY 09/26/17 09/26/17 History Fluticasone Nasal [place] [Flonase 2 spr EA NOSTRIL DAILY 09/26/17 09/26/17 History Nasal [place]] Hydrochlorothiazide 12.5 mg PO DAILY 09/26/17 09/26/17 History Losartan Potassium [Cozaar] 25 mg PO DAILY 09/26/17 09/26/17 History Naproxen 500 mg PO BID 09/26/17 09/26/17 History Triamcinolone 0.1% Cream [Kenalog] 1 applicatio TOPICAL BID PRN 09/26/17 History Vitamin B Complex 1 cap PO DAILY 09/26/17 09/26/17 History Allergies Allergy/AdvReac Type Severity Reaction Status Date / Time No Known Allergies Allergy Verified 09/26/17 12:29 Physical Exam Vitals: Vital Signs Temp Pulse Resp BP Pulse Ox 09/27/17 12:00 98.6 F 83 18 130/63 94 L 09/27/17 08:00 98.4 F 76 18 130/60 94 L 09/27/17 04:00 98.4 F 79 18 127/54 92 L 09/27/17 00:00 98.9 F 80 18 134/60 91 L 09/26/17 22:53 99.1 F 78 18 130/57 92 L 09/26/17 19:50 97.5 F L 78 18 138/70 95 09/26/17 18:53 89 16 148/71 95 Intake and Output 09/27/17 09/27/17 09/27/17 06:59 14:59 22:59 Intake Total 800 240 Output Total 600 600 Balance 200 -360 Intake: Intake, IV Titration 800 Amount Sodium Chloride 0.9% 1, 800 000 ml @ 100 mls/hr IV . Q10H [facility] Rx#:[id number] Oral 240 Output: Urine 600 600 Other: Voiding Method Urinal Urinal Weight 122.5 kg GENERAL EXAM: Patient is alert and oriented and doesn't appear to be in any acute distress HEENT: Normocephalic. Normal reaction of pupils, equal size, normal range of extraocular motion. No erythema or exudates in the throat. NECK: No masses, no nuchal rigidity. CHEST: No chest wall deformity. LUNGS: Equal air entry with no crackles or wheeze. HEART: S1 and S2 normal with no audible mumurs or gallops. Regular rhythm, femorals equal on both sides.. ABDOMEN: No hepatosplenomegaly, normal bowel sounds, no guarding or rigidity. SKIN: No rashes CENTRAL NERVOUS SYSTEM: Left-sided weakness EXTREMITIES: No cyanosis, clubbing or edema. Results 09/26/17 12:07 09/26/17 12:07 Lipids 09/27/17 Range/Units 05:56 Triglycerides 69 (<150) mg/dL Cholesterol 81 (<200) mg/dL HDL Cholesterol 32 L (40-60) mg/dL Current Medications Generic Name Dose Route Start Last Admin Trade Name Freq PRN Reason Stop Dose Admin Acetaminophen 650 mg 09/26/17 16:37 Tylenol Tab PO Q6H PRN Pain Hydrocodone Bitart/Acetaminophen 1 each 09/26/17 16:37 09/27/17 08:59 [place] 7.5-325 PO 1 each Q12H PRN Administration Pain Amlodipine Besylate 10 mg 09/27/17 09:00 09/27/17 08:56 Norvasc PO 10 mg DAILY ANKIT Administration Citalopram Hydrobromide 20 mg 09/27/17 09:00 09/27/17 08:56 Celexa PO 20 mg DAILY ANKIT Administration Diphenhydramine HCl 25 mg 09/26/17 16:37 Benadryl PO Q6H PRN Allergy Symptoms Finasteride 5 mg 09/27/17 09:00 09/27/17 08:57 Proscar PO 5 mg DAILY ANKIT Administration Fluticasone Propionate 2 spray 09/27/17 09:00 09/27/17 09:00 Flonase Nasal [place] EA NOSTRIL 2 spray DAILY ANKIT Administration Sodium Chloride 1,000 mls @ 100 mls/hr 09/26/17 14:00 09/27/17 13:28 Saline 0.9% IV 100 mls/hr .Q10H [facility] Administration Losartan Potassium 25 mg 09/27/17 09:00 09/27/17 08:57 Cozaar PO 25 mg DAILY ANKIT Administration Naproxen 500 mg 09/26/17 21:00 09/27/17 08:57 Naprosyn PO 500 mg BID ANKIT Administration Triamcinolone Acetonide 1 applic 09/26/17 16:37 Kenalog TOPICAL BID PRN Rash Intake and Output 09/27/17 09/27/17 09/27/17 06:59 14:59 22:59 Intake Total 800 240 Output Total 600 600 Balance 200 -360 Intake: Intake, IV Titration 800 Amount Sodium Chloride 0.9% 1, 800 000 ml @ 100 mls/hr IV . Q10H [facility] Rx#:[id number] Oral 240 Output: Urine 600 600 Other: Voiding Method Urinal Urinal Weight 122.5 kg 09/26/17 12:07 09/26/17 12:07 EKG Interpretations (text) Sinus rhythm Assessment and Plan (1) History of atrial fibrillation Current Visit: Yes Status: Acute Code(s): Z86.79 - PERSONAL HISTORY OF OTHER DISEASES OF THE CIRCULATORY SYSTEM SNOMED Code(s): 591364573 (2) CVA (cerebral vascular accident) Current Visit: Yes Status: Acute Code(s): I63.9 - CEREBRAL INFARCTION, UNSPECIFIED SNOMED Code(s): 916493688 (3) Essential hypertension Current Visit: Yes Status: Acute Code(s): I10 - ESSENTIAL (PRIMARY) HYPERTENSION SNOMED Code(s): 82538459 Plan: We will continue to monitor him for any recurrence of atrial fibrillation. We' ll review loop recorder. Further recommendation to follow. We'll also await the results of the MRI.
[2017-09-27] MEDS ORDERED: BISMUTH SUBSALICYLATE 4,192 MG/240 ML BOTTLE PO PRN (20:56)
[2017-09-27] MEDS ORDERED: ONDANSETRON 4 MG/2 ML VIAL IVP PRN (20:57)
[2017-09-28 01:02] LABS: Glucose,Whole Blood 94 mg/dL (75-99)
[2017-09-28] MEDS: SODIUM CHLORIDE 0.9% 1,000 ML IV SCH (06:50)
[2017-09-28] MEDS: amLODIPine 10 MG TAB PO SCH (09:24)
[2017-09-28] MEDS: LOSARTAN 25 MG TAB PO SCH (09:24)
[2017-09-28] MEDS: CITALOPRAM HYDROBROMIDE 20 MG TAB PO SCH (09:24)
[2017-09-28] MEDS: FLUTICASONE 50MCG/SPRAY NASAL 16GM EA NOSTRIL SCH (09:24)
[2017-09-28] MEDS: FINASTERIDE 5 MG TAB PO SCH (09:24)
[2017-09-28] MEDS: NAPROXEN 250 MG TAB PO SCH ×2 (09:25→20:18)
[2017-09-28] MEDS ORDERED: LORazepam 2 MG/ML INJ IV STA (10:18)
--- NOTE | 2017-09-28 10:28 | P.PN ---
Subjective 67-year-old gentleman came in with complaints of weakness in the left leg which resolved. Patient appears to have had cancer and ischemic attack does have residual weakness from his previous stroke on the left side with significant increase in the left arm. Patient is requesting to go to subacute rehabilitation. Cardiology was consulted regarding anticoagulation and the neurology is recommending anticoagulation although I'm unsure whether patient had intracranial hemorrhage in the past. Tried to get history from the family who believes patient had intracranial hemorrhage nature of which is unknown unsure whether that is traumatic. We'll try to get medical records from the hospital where he was admitted in [place] without any success so far will try again and also reach [facility]. Patient appears to have had paroxysmal episodes of atrial fibrillation because of which she was not started on anticoagulation by cardiology cardiology here was consulted discussed with cardiology nurse practitioner today. 09/28/2017 Patient is going for MRI as he as recommended by neurology. Discussed with cardiology regarding anticoagulation considering the possibility of hemorrhagic stroke in the past and etiology of hemorrhagic show is unknown at this time, we' re still unable to get any medical records from [place] where he was admitted for his sepsis C. diff colitis and possible hemorrhagic stroke during that hospitalization. I did get medical records from PCPs office will discuss with Dr. Taylor today. Anticoagulation decision will depend on his previous possible hemorrhagic stroke and etiology of that along with Holter monitor results. Constitutional: Denied any fatigue denied any fever. Cardio vascular: denied any chest pain, palpitations Gastrointestinal denied any nausea vomiting Pulmonary: Denied any shortness of breath cough Neurologic denied any new focal deficits Objective - Vital Signs Vital signs: Vital Signs Temp 97.3 F L 09/28/17 08:00 Pulse 74 09/28/17 08:00 Resp 16 09/28/17 08:00 BP 131/70 09/28/17 08:00 Pulse Ox 95 09/28/17 08:00 Intake & Output 09/27/17 09/28/17 09/28/17 18:59 06:59 18:59 Intake Total 480 120 Output Total 600 Balance -120 120 Weight 120 kg Intake: Oral 480 120 Output: Urine 600 Other: Voiding Method Urinal Urinal Urinal Diaper Diaper # Voids 2 # Bowel Movements 1 - Exam PHYSICAL EXAMINATION: GENERAL: The patient is alert and oriented x3, not in any acute distress. Well developed, well nourished. HEENT: Pupils are round and equally reacting to light. EOMI. No scleral icterus. No conjunctival pallor. Normocephalic, atraumatic. No pharyngeal erythema. No thyromegaly. CARDIOVASCULAR: S1 and S2 present. No murmurs, rubs, or gallops. PULMONARY: Chest is clear to auscultation, no wheezing or crackles. ABDOMEN: Soft, nontender, nondistended, normoactive bowel sounds. No palpable organomegaly. MUSCULOSKELETAL: No joint swelling or deformity. EXTREMITIES: No cyanosis, clubbing, or pedal edema. NEUROLOGICAL: Gross neurological examination showed sinus 0-1/5 strength in the left upper extremity and 4+/5 strength in the left lower extremity and no other focal deficits were appreciated SKIN: No rashes. - Labs CBC & Chem 7: 09/26/17 12:07 09/26/17 12:07 Assessment and Plan Plan: -Possible stroke, patient does have previous history of stroke in the right parietal lobe. Patient was evaluated by neurology and EEG did not show any significant abnormality further management as mentioned in the interval history anticoagulation discussion as per cardiology and neurology -Questionable history of atrial fibrillation and consulted cardiology.patient appears to have had paroxysmal episodes of atrial fibrillation -Lactic acidosis: Secondary to intravascular depletion no signs or symptoms of infection at this time repeat lactic acid , lactic acidosis completely resolved -CVA TIA in the past -Hyperlipidemia -Hypertension -Seizure disorder in the past
--- NOTE | 2017-09-28 11:41 | MR ---
EXAMINATION TYPE: MR brain wo con DATE OF EXAM: 09/28/2017 COMPARISON: CT brain 2 days ago and older CT study 06/21/2014. MRI brain July 07, 2014. HISTORY: TIA per order. Patient admitted for weakness 2 days earlier. TECHNIQUE: Multiplanar, multisequence imaging of the brain and brainstem is performed without IV cont rast. FINDINGS: There is redemonstration of background diffuse cerebral atrophy and chronic small vessel ischemic zana nge. There is redemonstration of large area of old infarct in the right MCA distribution with ex vacu o dilatation of the right-sided ventricular system versus opposite left side, this is not significant ly changed from prior exam. In the right parietal region there is persistent masslike area of slight increased signal on diffusio n-weighted images with diminished signal on ADC mapping, this area measures 3.0 x 1.8 cm on T2 axial image , this shows some T1 and T2 hyperintensity which corresponds to partially calcified lesion on CT that also appear slightly larger from 2015 CT. No midline shift is present. Normal vascular flow voids are seen. Mild mucosal thickening ethmoid sin uses remains present improved from prior MRI. Mild mucosal thickening inferior maxillary sinuses is s een. There is persistent increased fluid signal right mastoid air cells could reflect retained secret ions. The dural venous sinuses are felt patent. Craniocervical junction remains within normal limits. IMPRESSION: As above, focal area of acute/subacute infarct on background of large MCA distribution in farct cannot be excluded. Hemorrhagic transformation in area of old infarct is in differential with h yperdense and calcific component noted on CT. In addition presence of enlargement from 2015 CT and MR I makes underlying mass not excluded. MRI spectroscopy would be beneficial. Short-term follow-up cont rast-enhanced MRI in one to 2 months time also would be beneficial to evaluate infarct versus mass.
--- NOTE | 2017-09-28 17:22 | P.PN ---
Subjective Progress Note Date: 09/28/17 Patient is a pleasant 67-year-old male who is being followed by the neurology service for TIA. Patient does have history of CVA with left-sided weakness. Patient states left-sided weakness has been progressively getting worse leading to a fall at home. Patient was [facility] to [facility] for [facility]. Patient does reside in a [facility] since having a large stroke a few years back. Patient uses a walker for ambulation at home. Patient's left upper extremity has no movement. Patient is on aspirin 81 mg daily at home. Patient has history of paroxysmal atrial fibrillation and cardiology's been consulted. No other new neurological findings have been reported. Computed tomography scan of the brain did show old large right middle cerebral artery ischemic stroke with residual ventriculomegaly on that side. Patient states he ambulated with physical therapy this morning using his walker. Patient still feels very unsteady. At the time of my evaluation, patient's resting comfortably in bed and appears to be in no acute distress. 09/28/2017 Patient is a pleasant 67-year-old male who is being followed by the neurology service for TIA. Patient did undergo MRI of the brain which showed an acute versus subacute MCA infarct. However, MRI shows area of old infarct and calcific component. MRI suggests a possible underlying mass. Patient needs contrast-enhanced MRI in 1-2 months. At the time of my evaluation, patient is resting comfortably in bed and appears to be in no acute distress. Objective - Vital Signs Vital signs: Vital Signs Temp 98.6 F 09/28/17 14:47 Pulse 69 09/28/17 14:47 Resp 14 09/28/17 14:47 BP 94/51 09/28/17 14:47 Pulse Ox 91 L 09/28/17 14:47 Intake & Output 09/27/17 09/28/17 09/28/17 18:59 06:59 18:59 Intake Total 480 120 Output Total 600 2 Balance -120 118 Weight 120 kg Intake: Oral 480 120 Output: Urine 600 1 Stool 1 Other: Voiding Method Urinal Urinal Urinal Diaper Diaper # Voids 2 # Bowel Movements 1 - Exam PHYSICAL EXAM: GENERAL APPEARANCE: Patient is a well-developed, male who appears to be in no acute distress. HEENT: Normocephalic, atraumatic, no facial asymmetry is seen. Neck is supple with no masses felt. CARDIOVASCULAR: Regular rate and rhythm. Paroxysmal atrial fibrillation ABDOMEN: Nontender, nondistended. EXTREMITIES: Show mild edema. No clubbing. NEUROLOGICAL EXAM: Patient is awake, alert, and oriented 3. Speech and language are normal. Strength is 5/5 on the right upper and lower extremity. Strength is 4/5 on the left lower extremity and 0/5 in the left upper extremity. Sensory exam is normal to light touch in all 4 extremities. No facial asymmetry is seen on cranial nerve testing. No tremors or seizure-like activity noted. - Labs CBC & Chem 7: 09/26/17 12:07 09/26/17 12:07 Assessment and Plan Plan: Impression: 1. Transient ischemic attack 2. Increase left lower extremity weakness, resolved 3. History of previous ischemic stroke with residual left hemiparesis. 4. Paroxysmal atrial fibrillation 5. Left upper extremity spasticity Recommendation: It does appear patient may have suffered a transient ischemic attack with transient episode of increased left lower extremity weakness which may have led to his fall. Patient is back to baseline at this time. Continue aspirin 325 mg by mouth daily. Patient has left upper extremity spasticity and may benefit from Botox injections as an outpatient. As mentioned above, MRI of the brain showed focal area of acute/subacute infarct on background of large MCA distribution. MRI also mentions an underlying mass is not excluded. Patient will need contrast enhanced MRI in 1-2 months. Due to history of paroxysmal atrial fibrillation, cardiology was consulted. Cardiology recommends interrogation of the loop recorder. From a neurology standpoint, patient is recommended to be on anticoagulation therapy. Lipid panel was normal except for low HDL of 32. EEG was done and was normal except for some asymmetry noticed which is likely due to his old stroke. No epileptiform discharges were noted. Carotid Doppler did not show any hemodynamically significant stenosis. Homocystine level is normal. Continue physical therapy. Continue neurological checks. I will continue to follow with you. Further recommendations to follow. I performed an examination of the patient and discussed the management with the REHABILITATION WORKER. I have reviewed the REHABILITATION WORKER notes and agree with the findings and plan of care.
[2017-09-29 01:19] VITALS: RESP 18
[2017-09-29 07:11] VITALS: BP 130/53; PULSE 69; TEMP 98.7
[2017-09-29] MEDS: NAPROXEN 250 MG TAB PO SCH (08:09)
[2017-09-29] MEDS: LOSARTAN 25 MG TAB PO SCH (08:09)
[2017-09-29] MEDS: FINASTERIDE 5 MG TAB PO SCH (08:10)
[2017-09-29] MEDS: FLUTICASONE 50MCG/SPRAY NASAL 16GM EA NOSTRIL SCH (08:10)
[2017-09-29] MEDS: CITALOPRAM HYDROBROMIDE 20 MG TAB PO SCH (08:10)
[2017-09-29] MEDS: amLODIPine 10 MG TAB PO SCH (08:10)
--- NOTE | 2017-09-29 09:58 | P.GSHP ---
History of Present Illness H&P Date: 09/29/17 Chief Complaint: onychocryptosis left second toe cerebrovascular accident TIAs hypertension Patient was seen at bedside after full review of chart. is complaining of elongated nails of bilateral lower extremities. Patient states he was scheduled to have these nails reduced due to the length and ingrowing features however the physician was sick and never showed up. Then has been admitted to the hospital for CVA and falling episodes. Is being discharged today and is consenting to treatment. Past Medical History Past Medical History: Atrial Fibrillation, CVA/TIA, Hyperlipidemia, Hypertension , Osteoarthritis (OA), Pneumonia, Seizure Disorder Additional Past Medical History / Comment(s): Pt states he had a CVA in 2009 and has L sided weakness and decreased vision in L eye, pt states he had a seizure after his 2010 CVA, arthritis L hip and L shoulder, thinks he may have RA but never diagnosed, migraines, anemia, colon polyp-benign, past L lower leg cellulitis. History of Any Multi-Drug Resistant Organisms: None Reported Past Surgical History: Cholecystectomy, Tonsillectomy Additional Past Surgical History / Comment(s): 11/06/14 loop recorder, colonoscopies, benign polypectomy. Past Anesthesia/Blood Transfusion Reactions: No Reported Reaction Past Psychological History: Depression Additional Psychological History / Comment(s): Pt resides alone in a senior apartment. He uses a walker to ambulate. He does not drive, his daughter takes him to appts. His daughter, Yas also manages his medications. He gets meals thru the senior apartments. Pt states medication for his depression works good for him. Smoking Status: Former smoker Past Alcohol Use History: None Reported Additional Past Alcohol Use History / Comment(s): Pt started smoking in 1966 and quit in 2009. He states he also was a heavy drinker but quit that as well in 2009. Past Drug Use History: None Reported - Past Family History Father Family Medical History: No Reported History Additional Family Medical History / Comment(s): Father was healthy. He in a MVA at the age of 69yrs. Mother Family Medical History: Diabetes Mellitus, Myocardial Infarction ([place]) Additional Family Medical History / Comment(s): Mother also had a pneumothorax. Medications and Allergies Home Medications Medication Instructions Recorded Confirmed Type Aspirin 81 mg PO DAILY 11/07/13 09/26/17 History Citalopram Hydrobromide [CeleXA] 20 mg PO DAILY 11/07/13 09/26/17 History Hydrocodone/Acetaminophen 1 tab PO Q12H PRN 11/07/13 09/26/17 History [Hydrocodone/Acetaminophen 7.5-325] Cyanocobalamin [Vitamin B-12] 1,000 mcg PO DAILY 11/06/14 09/26/17 History amLODIPine [Norvasc] 10 mg PO DAILY 11/06/14 09/26/17 History diphenhydrAMINE [Benadryl] 25 mg PO Q6H PRN 11/06/14 09/26/17 History Acetaminophen Tab [Tylenol Tab] 650 mg PO Q6H PRN 09/26/17 09/26/17 History Finasteride [Proscar] 5 mg PO DAILY 09/26/17 09/26/17 History Fluticasone Nasal [place] [Flonase 2 spr EA NOSTRIL DAILY 09/26/17 09/26/17 History Nasal [place]] Hydrochlorothiazide 12.5 mg PO DAILY 09/26/17 09/26/17 History Losartan Potassium [Cozaar] 25 mg PO DAILY 09/26/17 09/26/17 History Naproxen 500 mg PO BID 09/26/17 09/26/17 History Triamcinolone 0.1% Cream [Kenalog] 1 applicatio TOPICAL BID PRN 09/26/17 History Vitamin B Complex 1 cap PO DAILY 09/26/17 09/26/17 History Allergies Allergy/AdvReac Type Severity Reaction Status Date / Time No Known Allergies Allergy Verified 09/26/17 12:29 Surgical - Exam Vital Signs Temp Pulse Resp BP Pulse Ox 98.9 F 107 H 18 147/60 98 09/26/17 11:56 09/26/17 11:56 09/26/17 11:56 09/26/17 11:56 09/26/17 11:56 - Cardiovascular Pedal pulses are diminished bilateral skin temperature texture tumor decreased bilateral no digital hair 10. Subplexuxs venous filling time is delayed 10 - Integumentary Dystrophic nails 10 elongated with ingrown nail medial lateral borders of the left hallux causing localized paronychia erythema edema. There is no sign of infection or purulence. Minimal pain with palpation to the patient's neuropathy - Neurologic Patient has left-sided paresthesias and paralysis. Secondary to the cerebral vacs or accident. - Musculoskeletal All inverters everters plantar flexors dorsiflexors grossly intact right diminished left. Range of motion ankle joint subtalar joint and midtarsal joint and metatarsophalangeal joint grossly normal bilateral. Hammering of digits 234 bilateral with hallux abducto valgus deformity bilateral Results - Labs 09/26/17 12:07 09/26/17 12:07 Assessment and Plan Assessment: Peripheral vascular disease bilateral with left-sided paralysis Onychocryptosis left second toe. Plan: Exam. Review patient's past medical history per chart. Discussed with patient findings and treatment plan. No anesthesia was necessary to remove the ingrown nail to patient's hypoesthesia. Therefore we performed a simple excision of the left second toe nail with cutting and nailbed to the proximal nail fold both medial lateral borders. The remaining nails were reduced manually. Patient will benefit from this treatment. Patient does have need for follow-up care and recommend patient to the same.
--- NOTE | 2017-09-29 14:07 | P.PN ---
Subjective Progress Note Date: 09/29/17 Mr. Lopez is a pleasant 67-year-old male past medical history significant for paroxysmal atrial fibrillation, CVA with residual left-sided weakness, dyslipidemia, hypertension and former tobacco use. He currently has a loop recorder in place after his previous stroke to assess his atrial fibrillation. Most recent interrogation from the office reveals NO ATRIAL FIBRILLATION. There was some concern as to whether he had a hemorrhagic stroke in the past and therefore anti-coagulation has been held. MRI done yesterday reveals focal area of acute/subacute infarct on backgroud of large MCA distribution infarct cannot be excluded. Hemorrhagic transformation in area of old infarct is in the differential with hyperdense and calcific component noted on CT. In addition presence of enlargement from 2015 CT and MRI makes underlying mass not excluded. Objective - Vital Signs Vital signs: Vital Signs Temp 98.7 F 09/29/17 07:00 Pulse 69 09/29/17 07:00 Resp 18 09/29/17 08:12 BP 130/53 09/29/17 07:00 Pulse Ox 92 L 09/29/17 07:00 Intake & Output 09/28/17 09/29/17 09/29/17 18:59 06:59 18:59 Intake Total 120 900 Output Total 2 900 1 Balance 118 0 -1 Weight 120 kg Intake: Oral 120 900 Output: Urine 1 900 Stool 1 1 Other: Voiding Method Urinal Urinal Urinal Diaper Diaper Diaper - Exam GENERAL: Well-appearing, well-nourished and in no acute distress. Left sided weakness. NECK: Supple without JVD or thyromegaly. LUNGS: Breath sounds clear to auscultation bilaterally. Respiration equal and unlabored. No wheezes, rales or rhonchi. HEART: Regular rate and rhythm without murmurs, rubs or gallops. S1 and S2 heard. EXTREMITIES: Left sided weakness, pulses intact. Right BKA. - Labs CBC & Chem 7: 09/26/17 12:07 09/26/17 12:07 Assessment and Plan Assessment: ASSESSMENT 1. History of atrial fibrillation. Loop recorder in place reveals no evidence of atrial fibrillation since implantation in October 2014. 2. History of previous hemorrhagic stroke. 3. Hypertension 4. TIA PLAN Telemetry tracings since admission reveal sinus mechanism with no evidence of atrial fibrillation. Loop recorder has been in place since October 2014 with no documented atrial fibrillation since implantation. Question hemorrhagic stroke in 2015 with possible hemorrhagic transformation noted on recent MRI. No anticoagulation recommended from a cardiac perspective. This has been discussed in detail with the patient. Follow-up with Dr. Dowd in4 weeks. Nurse Practitioner note has been reviewed, I agree with a documented findings and plan of care. Patient was seen and examined.
--- NOTE | 2017-09-29 15:35 | P.DS ---
Providers Date of admission: 09/26/17 13:53 Attending physician: Suki Carpio Consults: 09/26/17 13:53 Consult Physician Routine Consulting Provider: Brent Banda Consult Reason/Comments: LLE weakness Do you want consulting provider notified?: Yes 09/26/17 16:52 Consult Physician Routine Consulting Provider: Ronny Dowd Consult Reason/Comments: A.fib history, CVA Do you want consulting provider notified?: Yes 09/27/17 17:18 Consult Physician Routine Consulting Provider: Ap Macias Consult Reason/Comments: FOOT CARE/ TOE NAIL TRIM Do you want consulting provider notified?: Yes Primary care physician: Nicolle Taylor [facility] Course: 67-year-old gentleman came in with complaints of weakness in the left leg which resolved. Patient appears to have had cancer and ischemic attack does have residual weakness from his previous stroke on the left side with significant increase in the left arm. Patient is requesting to go to subacute rehabilitation. Cardiology was consulted regarding anticoagulation and the neurology is recommending anticoagulation although I'm unsure whether patient had intracranial hemorrhage in the past. Tried to get history from the family who believes patient had intracranial hemorrhage nature of which is unknown unsure whether that is traumatic. We'll try to get medical records from the hospital where he was admitted in [place] without any success so far will try again and also reach [facility]. Patient appears to have had paroxysmal episodes of atrial fibrillation because of which she was not started on anticoagulation by cardiology cardiology here was consulted discussed with cardiology nurse practitioner today. 09/28/2017 Patient is going for MRI as he as recommended by neurology. Discussed with cardiology regarding anticoagulation considering the possibility of hemorrhagic stroke in the past and etiology of hemorrhagic show is unknown at this time, we' re still unable to get any medical records from [place] where he was admitted for his sepsis C. diff colitis and possible hemorrhagic stroke during that hospitalization. I did get medical records from PCPs office will discuss with Dr. Taylor today. Anticoagulation decision will depend on his previous possible hemorrhagic stroke and etiology of that along with Holter monitor results. 09/29/2017 Patient Holter monitor did not show any recent A. fib had a very brief episode of atrial fibrillation 3 years ago. Because of which cardiology is not recommending any anticoagulation. Patient MRA did show focal area of right- sided acute or subacute infarct in the middle cerebral artery territory and Abdirashid cannot be excluded because of which it was recommended to repeat and other MRI in 2-3 months. Neurology evaluated the patient discussed with neurology. Neurology is recommending Plavix since of aspirin. Low-dose statin will be added LDL is only 35PHYSICAL EXAMINATION: GENERAL: The patient is alert and oriented x3, not in any acute distress. Well developed, well nourished. HEENT: Pupils are round and equally reacting to light. EOMI. No scleral icterus. No conjunctival pallor. Normocephalic, atraumatic. No pharyngeal erythema. No thyromegaly. CARDIOVASCULAR: S1 and S2 present. No murmurs, rubs, or gallops. PULMONARY: Chest is clear to auscultation, no wheezing or crackles. ABDOMEN: Soft, nontender, nondistended, normoactive bowel sounds. No palpable organomegaly. MUSCULOSKELETAL: No joint swelling or deformity. EXTREMITIES: No cyanosis, clubbing, or pedal edema. NEUROLOGICAL: Gross neurological examination showed sinus 0-1/5 strength in the left upper extremity and 4+/5 strength in the left lower extremity and no other focal deficits were appreciated SKIN: No rashes. Assessment and Plan Plan: -Possible stroke, patient does have previous history of stroke in the right parietal lobe. -Lactic acidosis: Secondary to intravascular depletion no signs or symptoms of infection at this time repeat lactic acid , lactic acidosis completely resolved -CVA TIA in the past -Hyperlipidemia -Hypertension -Seizure disorder in the past Plan - Discharge Summary Discharge Rx Participant: No New Discharge Prescriptions: New Clopidogrel Bisulfate [Plavix] 75 mg PO DAILY #1 tab HYDROcodone/APAP 7.5-325MG [[place] 7.5-325] 1 each PO Q12H PRN #6 tab PRN Reason: Pain Atorvastatin Calcium [Lipitor] 20 mg PO HS #1 tab Continue Citalopram Hydrobromide [CeleXA] 20 mg PO DAILY amLODIPine [Norvasc] 10 mg PO DAILY Cyanocobalamin [Vitamin B-12] 1,000 mcg PO DAILY Acetaminophen Tab [Tylenol] 650 mg PO Q6H PRN PRN Reason: Pain Finasteride [Proscar] 5 mg PO DAILY Fluticasone Nasal Matthews [Flonase Nasal Matthews] 2 spr EA NOSTRIL DAILY Losartan Potassium [Cozaar] 25 mg PO DAILY Naproxen 500 mg PO BID Triamcinolone 0.1% Cream [Kenalog] 1 applicatio TOPICAL BID PRN PRN Reason: Rash Vitamin B Complex 1 cap PO DAILY Discontinued Aspirin 81 mg PO DAILY Hydrocodone/Acetaminophen [Hydrocodone/Acetaminophen 7.5-325] 1 tab PO Q12H PRN PRN Reason: Pain diphenhydrAMINE [Benadryl] 25 mg PO Q6H PRN PRN Reason: Allergy Symptoms Hydrochlorothiazide 12.5 mg PO DAILY Discharge Medication List Citalopram Hydrobromide [CeleXA] 20 mg PO DAILY 11/07/13 [History] Cyanocobalamin [Vitamin B-12] 1,000 mcg PO DAILY 11/06/14 [History] amLODIPine [Norvasc] 10 mg PO DAILY 11/06/14 [History] Acetaminophen Tab [Tylenol] 650 mg PO Q6H PRN 09/26/17 [History] Finasteride [Proscar] 5 mg PO DAILY 09/26/17 [History] Fluticasone Nasal Matthews [Flonase Nasal Matthews] 2 spr EA NOSTRIL DAILY 09/26/17 [ History] Losartan Potassium [Cozaar] 25 mg PO DAILY 09/26/17 [History] Naproxen 500 mg PO BID 09/26/17 [History] Triamcinolone 0.1% Cream [Kenalog] 1 applicatio TOPICAL BID PRN 09/26/17 [ History] Vitamin B Complex 1 cap PO DAILY 09/26/17 [History] Atorvastatin Calcium [Lipitor] 20 mg PO HS #1 tab 09/29/17 [Rx] Clopidogrel Bisulfate [Plavix] 75 mg PO DAILY #1 tab 09/29/17 [Rx] HYDROcodone/APAP 7.5-325MG [[place] 7.5-325] 1 each PO Q12H PRN #6 tab 09/29/17 [ Rx] Follow up Appointment(s)/Referral(s): Ronny Dowd MD [STAFF PHYSICIAN] - 4 Weeks Nicolle Taylor III, MD [Primary Care Provider] - 1-2 days Brent Banda MD [STAFF PHYSICIAN] - 2 Weeks Patient Instructions/Handouts: Stroke (DC) Activity/Diet/Wound Care/Special Instructions: Dr Shuayto would like Patient to have a follow up MRI as an outpatient in one month. Discharge Disposition: TRANSFER TO SNF/ECF
== END 2017-09-29 17:16 | DRG 65 ==
LOC: EC 11:53 → 6SEL 13:53 → 4MS4W 09-28 10:56
PROVIDERS: ADMIT Hospitalist; ATTEND Hospitalist
PROC: 0HBRXZZ Excision of Toe Nail, External Approach (ICD-10-PCS; principal; 2017-09-29)
DX: I63.8 Other cerebral infarction (principal); G81.94 Hemiplegia, unspecified affecting left nondominant side; E87.0 Hyperosmolality and hypernatremia; E87.2 Acidosis; I69.354 Hemiplegia and hemiparesis following cerebral infarction affecting left non-dominant side; D64.9 Anemia, unspecified; E78.5 Hyperlipidemia, unspecified; E86.0 Dehydration; F32.9 Major depressive disorder, single episode, unspecified; G40.909 Epilepsy, unspecified, not intractable, without status epilepticus; H54.7 Unspecified visual loss; I10 Essential (primary) hypertension; I48.0 Paroxysmal atrial fibrillation; L60.0 Ingrowing nail; M06.9 Rheumatoid arthritis, unspecified; M16.12 Unilateral primary osteoarthritis, left hip; M19.012 Primary osteoarthritis, left shoulder; G43.909 Migraine, unspecified, not intractable, without status migrainosus; S09.90XA Unspecified injury of head, initial encounter; G93.89 Other specified disorders of brain; Z79.82 Long term (current) use of aspirin; Z79.899 Other long term (current) drug therapy; Z87.891 Personal history of nicotine dependence; Z90.49 Acquired absence of other specified parts of digestive tract; Z82.49 Family history of ischemic heart disease and other diseases of the circulatory system; Z83.3 Family history of diabetes mellitus; W19.XXXA Unspecified fall, initial encounter; Y92.9 Unspecified place or not applicable
CPT/HCPCS: 36415; 70450; 70551; 71046; 80053; 80061; 81001; 82550; 82553; 83090; 83605; 83735; 84100; 84484; 85025; 85610; 85730; 93005; 93306; 93880; 94760; 95816; 96360; 96361; 99285